=== PATIENT | female | born 1980 | race Caucasian/White ===

== ENCOUNTER 2022-02-11 01:48 | Outpatient (CLI) | payer OTHER, MEDICAID, SELFPAY ==
--- NOTE | 2022-02-14 15:59 | PDOC.EEG ---
Neurology EEG EEG: [facility] Department of Neurology LONG-TERM AMBULATORY EEG REPORT Date of Recordin02/11/22 at 08:28:34 to02/12/22 at 15:54:17 Interpreting Physician: Dr. Adalgisa Miller PCP/Referring Provider: Fanny Sr NP Reason for study: Ms. Ellis is a 41 year-old with a several year history of spells. Current Medications: Home Medications Medication Instructions Recorded Confirmed Type clonazepam 0.5 mg tablet 0.5 mg PO TID 11/02/21 02/01/22 History epinephrine 0.3 mg/0.3 mL 0.3 mg IM ONCE 11/02/21 02/01/22 History injection, auto-injector (EpiPen 2-Yamil) ibuprofen 600 mg tablet 600 mg PO Q6H PRN 11/02/21 02/01/22 History lurasidone 20 mg tablet (Latuda) 40 mg PO DAILY 02/01/22 02/01/22 History ondansetron HCl 8 mg tablet 8 mg PO Q8H 02/01/22 02/01/22 History topiramate 100 mg tablet 100 mg PO QHS #90 tabs 02/01/22 02/01/22 Rx topiramate 50 mg tablet See Rx Instructions PO QHS #21 tabs 02/01/22 02/01/22 Rx trazodone 50 mg tablet 100 mg PO QHS 02/01/22 02/01/22 History zolmitriptan 5 mg tablet See Rx Instructions PO .COMPLEX #9 02/01/22 02/01/22 Rx tabs METHODS: An 18-channel digitized electroencephalogram was recorded in the ambulatory setting with video. The 10/20 international system of electrode placement was used and bipolar and referential electrode montages were recorded. In addition to EEG the patient was monitored for EKG and by video. Activation procedures of photic stimulation and hyperventilation were performed if applicable. The duration of the recording was ~31 hours. DESCRIPTION OF EEG: Waking background activity: During maximal wakefulness a 9.5-Hz posterior background rhythm was present which was well-modulated, symmetrical, reactive to eye opening, and of moderate voltage. Faster frequencies were present in the bilateral anterior head regions. There was a normal anterior-posterior voltage gradient. Drowsy and sleeping background activity: During drowsiness, there was attenuation of the posterior dominant background rhythm and vertex waves. Normal stage II and III sleep was present with symmetrical sleep spindles, K-complexes, and vertex waves with slowing of the background rhythm to delta/theta frequencies. REM sleep manifested by rapid lateral eye movements and faster background rhythms was recorded. Arousal was unremarkable. Interictal abnormalities: none. Ictal findings: There were no reported events. Activating Procedures: Photic stimulation was performed which produced no posterior driving response. Hyperventilation was performed with moderate effort and produced mild physiological slowing of the background. EKG: EKG revealed normal sinus rhythm/SB. INTERPRETATION: This long-term EEG is normal during the awake and sleep states as well as during the activation procedures. PRIOR EEG: none CLINICAL CORRELATION: No focal regions of cerebral dysfunction or epileptiform activity was present. Epilepsy remains a clinical diagnosis and a normal EEG does not rule out epilepsy. Clinical correlation is advised. Adalgisa Miller MD
== END 2022-02-11 01:49 | disposition home or self-care (01) ==
LOC: RT 01:48
PROVIDERS: PCP Registered Nurse; Visit Provider Psychiatry & Neurology Neurology
DX: R68.89 Other general symptoms and signs (principal)
CPT/HCPCS: 95714

== ENCOUNTER 2023-09-11 12:39 | Outpatient (CLI) | payer SELFPAY ==
[2023-09-11 20:13] LABS: HCG Qual (Urine) Negative
== END 2023-09-11 12:40 | disposition home or self-care (01) ==
LOC: LBO 12:39
PROVIDERS: PCP Registered Nurse; Visit Provider Neuromusculoskeletal Medicine & OMM
DX: N92.5 Other specified irregular menstruation (principal); Z32.02 Encounter for pregnancy test, result negative
CPT/HCPCS: 81025

== ENCOUNTER → 2023-09-29 22:34 | Emergency (ER) | payer SELFPAY ==
[2023-09-29] VITALS (15 sets, daily range): BP systolic 106–137; BP diastolic 55–78; PULSE 75–94; RESP 17–23; TEMP 36.8; O2SAT 93–98
--- NOTE | 2023-09-29 22:30 | RT.EKG_ITS ---
APPROVED REPORT Exam: Resting ECG Reason for Exam: chest pain Patient Location: E HR:88 bpm ECG Measurements Heart Rate 88 AXIS AK 176 P 54 QRSd 115 QRS 0 QT 353 T 21 QTc 428 Conclusion Sinus rhythm...normal P axis, V-rate 60- 99 Probable left ventricular hypertrophy...multiple LVH criteria Physician: no stemi
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
[2023-09-29] MEDS: LORazepam 2 MG/ML VIAL 0.5 MG IVP (23:04)
[2023-09-29 23:07] LABS: Abs Immature Grans 0.03 10^3/uL (0.0-0.06); Absolute Basophil Count 0.05 10^3/uL (0.0-0.2); Absolute Eosinophil Count 0.06 10^3/uL (0.0-0.7); Absolute Lymphocyte Count 2.87 10^3/uL (1.2-3.4); Absolute Monocyte Count 0.65 10^3/uL (0.1-0.8); Absolute Neutrophil Count 5.58 10^3/uL (1.2-6.7); Basophils % 0.5 %; Eosinophils % 0.6 %; HCT 31.6 % (36.0-46.0); HGB 9.6 g/dL (11.2-15.7); Immature Grans % 0.3 %; Lymphocytes % 31.1 %; MCH 22.5 pg (27.0-33.0); MCHC 30.4 % (32.0-36.0); MCV 74 fL (80-95); MPV 10.1 fL (8.0-11.0); Neutrophils % 60.5 %; Platelet Count 390 10^3/uL (130-400); RBC 4.27 10^6/uL (3.93-5.22); RDW 16.5 % (11.7-14.6); WBC 9.24 10^3/uL (4.4-10.8)
[2023-09-29 23:20] LABS: ALT 22 U/L (14-59); AST 18 U/L (15-37); Albumin 3.4 g/dL (3.4-5.0); Alkaline Phosphatase 117 U/L (46-116); Anion Gap 9.2 mmol/L (3-11); BUN 11 mg/dL (7-18); Bilirubin, Total 0.61 mg/dL (0.2-1.0); CO2 26.8 mmol/L (21.0-32.0); Chloride 104 mmol/L (98-107); Estimated GFR 71.69 (mL/min/1.73m2); Glucose 108 mg/dL (74-106); Potassium 3.4 mmol/L (3.5-5.1); Sodium 140 mmol/L (136-145); Total Protein 7.9 g/dL (6.4-8.2); Troponin I < 50 ng/L (< or =60)
[2023-09-29 23:23] LABS: Diff Comment RBC Morph Reviewed; Microcytosis 1+
--- NOTE | 2023-09-29 23:42 | NUR.NOTE ---
Nursing Note: pt appears to be sleeping at this time
== END | disposition home or self-care (01) ==
LOC: ER 23:52 → RED 09-30 00:09
PROVIDERS: Emergency Provider Student in an Organized Health Care Education/Training Program; PCP Registered Nurse
DX: R07.9 Chest pain, unspecified (principal); F41.9 Anxiety disorder, unspecified; Z86.59 Personal history of other mental and behavioral disorders; Z63.5 Disruption of family by separation and divorce
CPT/HCPCS: 36415; 80053; 93005; 96374; 99284; 84484; 85025; 93010; 99283; J2060

== ENCOUNTER 2024-03-25 13:30 | Emergency (ER) | payer SELFPAY ==
[2024-03-25 13:38] VITALS: BP 148/98; PULSE 90; RESP 20; TEMP 36.5; O2SAT 99
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
[2024-03-25 14:08] VITALS: BP 116/61; PULSE 90; RESP 20; O2SAT 95
[2024-03-25] MEDS: Ibuprofen 400 MG TAB PO (14:16)
[2024-03-25 14:22] LABS: Bilirubin Negative (Negative); Blood Large (Negative); Clarity Clear (Clear); Glucose Negative (Negative); Ketones Negative (Negative); Leukocyte Esterase Negative (Negative); Nitrite Negative (Negative); Urobilinogen 0.2 mg/dL (Up to 0.2)
[2024-03-25 14:27] LABS: Bacteria Few HPF (Negative); C & S Indicated? No; Casts Negative LPF (Negative); Crystals Negative HPF (Negative); Epithelial Cells Few HPF (Negative); Mucus Moderate (Negative); WBC 0-2 HPF (0-5)
[2024-03-25 14:27] LABS: Abs Immature Grans 0.03 10^3/uL (0.0-0.06); Absolute Basophil Count 0.05 10^3/uL (0.0-0.2); Absolute Eosinophil Count 0.16 10^3/uL (0.0-0.7); Absolute Lymphocyte Count 3.05 10^3/uL (1.2-3.4); Absolute Monocyte Count 0.65 10^3/uL (0.1-0.8); Absolute Neutrophil Count 5.02 10^3/uL (1.2-6.7); Basophils % 0.6 %; Eosinophils % 1.8 %; HCT 34.1 % (36.0-46.0); HGB 10.5 g/dL (11.2-15.7); Immature Grans % 0.3 %; MCH 24.2 pg (27.0-33.0); MCHC 30.8 % (32.0-36.0); MCV 79 fL (80-95); MPV 9.6 fL (8.0-11.0); Monocytes % 7.3 %; Platelet Count 414 10^3/uL (130-400); RBC 4.34 10^6/uL (3.93-5.22); RDW 15.4 % (11.7-14.6); WBC 8.96 10^3/uL (4.4-10.8)
[2024-03-25 14:46] LABS: ALT 37 U/L (14-59); AST 22 U/L (15-37); Albumin 3.5 g/dL (3.4-5.0); Alkaline Phosphatase 145 U/L (46-116); Anion Gap 5.8 mmol/L (3-11); BUN 11 mg/dL (7-18); Bilirubin, Total 0.44 mg/dL (0.2-1.0); CO2 31.2 mmol/L (21.0-32.0); CREATININE 0.9 mg/dL (0.55-1.02); Calcium 9.1 mg/dL (8.5-10.1); Chloride 105 mmol/L (98-107); Estimated GFR 81.35 (mL/min/1.73m2); Glucose 77 mg/dL (74-106); Potassium 3.6 mmol/L (3.5-5.1); Sodium 142 mmol/L (136-145); Total Protein 8.5 g/dL (6.4-8.2)
[2024-03-25 15:19] VITALS: BP 133/84; PULSE 91; RESP 18; O2SAT 97
== END 2024-03-25 15:20 | disposition home or self-care (01) ==
LOC: ER 15:11
PROVIDERS: Physician Assistant; Emergency Provider Emergency Medicine
DX: N93.8 Other specified abnormal uterine and vaginal bleeding (principal); D50.9 Iron deficiency anemia, unspecified; F17.290 Nicotine dependence, other tobacco product, uncomplicated
CPT/HCPCS: 80053; 99283; 81003; 81015; 85025

== ENCOUNTER 2024-03-27 11:37 | Outpatient (REF) | payer SELFPAY ==
--- NOTE | 2024-03-27 11:00 | PAPFT_PTH ---
PATIENT: Zelda Ellis LOC: [facility] U#:[id number] AGE/SX: 43/F ROOM: RE03/27/[address]: Misa Vinson NP : 1980 BED: DIS: 03/27/2024 SPEC #: [id number] RECD: 03/27/24 12:52 STATUS: BYRON BURNS #: [id number] SORAYA: 03/27/24 11:[address]: Misa Vinson NP DEPT: [facility] Cytology RECD BY: Jennifer De La Garza ENTERED: 03/27/24 12:52 SP TYPE: PAPFT FARTUN DR: None Tissues: 1 - CX/ENDOCX FOR PAP SMEARS Procedures: PAP THIN PREP/UVM Screening Comments: [id number] (UNSATISFACTORY FOR EVALUATION)
--- NOTE | 2024-03-27 11:00 | ENDOMET_PTH ---
PATIENT: Zelda Ellis LOC: [facility] U#:[id number] AGE/SX: 43/F ROOM: RE03/27/[address]: Misa Vinson NP : 1980 BED: DIS: 03/27/2024 SPEC #: [id number] RECD: 03/27/24 12:48 STATUS: BYRON REClyde #: [id number] SORAYA: 03/27/24 11:[address]: Alisson CARRENO,Misa DEPT: Surgical Specimen RECD BY: Jennifer De La Garza ENTERED: 03/27/24 12:48 SP TYPE: Endomet OTHR DR: None Tissues: 1 - ENDOMETRIUM BX/CURRETTE Procedures: GROSS AND MICRO LEVEL 4 Comments: [id number]
== END 2024-03-27 11:38 | disposition home or self-care (01) ==
LOC: LBN 11:37
PROVIDERS: Visit Provider Nurse Practitioner Women's Health
DX: D26.0 Other benign neoplasm of cervix uteri (principal); N89.8 Other specified noninflammatory disorders of vagina; N93.8 Other specified abnormal uterine and vaginal bleeding
CPT/HCPCS: 88142; 88305

== ENCOUNTER 2024-04-04 15:42 | Outpatient (REF) | payer SELFPAY ==
--- NOTE | 2024-04-04 16:00 | ENDOMET_PTH ---
PATIENT: Zelda Ellis LOC: [facility] U#:[id number] AGE/SX: 43/F ROOM: RE04/04/[address]: Camille Sargent : 1980 BED: DIS: 04/04/2024 SPEC #: [id number] RECD: 04/04/24 17:38 STATUS: BYRON REQ #: [id number] SORAYA: 04/04/24 16:[address]: Camille Sargent DEPT: Surgical Specimen RECD BY: Jennifer De La Garza ENTERED: 04/04/24 17:39 SP TYPE: Endomet OTHR DR: None Tissues: 1 - ENDOMETRIUM BX/CURRETTE Procedures: GROSS AND MICRO LEVEL 4 Comments: [id number]
== END 2024-04-04 15:43 | disposition home or self-care (01) ==
LOC: LBN 15:42
PROVIDERS: Visit Provider Obstetrics & Gynecology Gynecology
DX: D26.0 Other benign neoplasm of cervix uteri
CPT/HCPCS: 88305; 87480; 87510; 87660

== ENCOUNTER 2024-04-13 16:10 | Emergency (ER) | payer SELFPAY ==
[2024-04-13 16:21] VITALS: BP 128/83; PULSE 97; RESP 16; TEMP 36.8; O2SAT 98
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
[2024-04-13 17:54] LABS: COVID-19 PCR Negative (Negative); Influenza A PCR Negative (Negative); Influenza B PCR Negative (Negative); RSV PCR Negative (Negative)
[2024-04-13 17:57] LABS: Source Nasopharynx
--- NOTE | 2024-04-13 18:18 | DI.RAD_ITS ---
Exam(s) XR CHEST 2V PA LATERAL EXAM: XR CHEST 2V PA LATERAL CLINICAL HISTORY: cough TECHNIQUE: 2D digital imaging was performed. Two views. COMPARISON: No exams were available for comparison FINDINGS: Suboptimal pulmonary inflation HEART: Mildly enlarged versus secondary to low lung volumes. Aorta: Not dilated. PULMONARY VASCULATURE: Normal. MEDIASTINUM: Unremarkable. LUNGS: Minimal scarring at the right lung base, otherwise clear. PLEURAL SPACE: No pleural effusion or pneumothorax. BONE:Unremarkable for age. SOFT TISSUES: Unremarkable. IMPRESSION: No acute abnormality. DATA REPOSITORY: RADIATION DOSE DELIVERED:
[2024-04-13 18:53] VITALS: BP 121/79; PULSE 83; RESP 13; TEMP 36.8; O2SAT 97
--- NOTE | 2024-04-13 19:01 | DI.VRAD_ITS ---
PROCEDURE INFORMATION: Exam: XR Chest Exam date and time: 04/13/2024 6:17 PM Age: 43 years old Clinical indication: Cough TECHNIQUE: Imaging protocol: Radiologic exam of the chest. Views: 2 views. COMPARISON: No relevant prior studies available. FINDINGS: Lungs: There is a minimal pulmonary parenchymal scarring at the right lung base. Lungs otherwise clear. There is no pulmonary vascular congestion. Pleural spaces: There are no pleural effusions present. There is no evidence of pneumothorax. Heart/Mediastinum: The heart appears mildly enlarged, but is not well evaluated due to low lung volumes. Bones/joints: Unremarkable. IMPRESSION: No active cardiopulmonary disease identified. Dictated and Authenticated by: Fausto Llamas MD. Orderin Manjinder Del Rio MD
[2024-04-13] MEDS: Albuterol HFA 8 GM 60 PUFF INH IH (19:19)
[2024-04-13] MEDS: Benzonatate 100 MG CAP 200 MG PO (19:20)
[2024-04-13] MEDS: Inhaler, Assist Device 1 EACH MC (19:20)
== END 2024-04-13 19:24 | disposition home or self-care (01) ==
PROVIDERS: Student in an Organized Health Care Education/Training Program; Emergency Provider Physician Assistant
DX: J06.9 Acute upper respiratory infection, unspecified (principal); E11.9 Type 2 diabetes mellitus without complications; F17.290 Nicotine dependence, other tobacco product, uncomplicated
CPT/HCPCS: 87637; 99284; 71046

== ENCOUNTER 2024-06-12 09:04 | Outpatient (CLI) | payer SELFPAY ==
[2024-06-12 13:27] LABS: HCT 34.7 % (36.0-46.0); HGB 10.4 g/dL (11.2-15.7); MCH 22.7 pg (27.0-33.0); MCV 76 fL (80-95); MPV 10.4 fL (8.0-11.0); Platelet Count 415 10^3/uL (130-400); RBC 4.59 10^6/uL (3.93-5.22); RDW 19.4 % (11.7-14.6); RDW-SD 51.6 fL; WBC 7.71 10^3/uL (4.4-10.8)
[2024-06-12 13:50] LABS: Hemoglobin A1C 5.8 % (<5.7)
== END 2024-06-12 09:05 | disposition home or self-care (01) ==
PROVIDERS: Visit Provider Obstetrics & Gynecology
DX: Z01.818 Encounter for other preprocedural examination (principal)
CPT/HCPCS: 36415; 85027; 86850; 86900; 86901; 83036

== ENCOUNTER 2024-11-22 10:32 | Outpatient (REF) | payer SELFPAY | END 2024-11-22 10:33 | disposition home or self-care (01) | LOC: LBN 10:32 | PROVIDERS: Visit Provider Obstetrics & Gynecology | DX: D26.0 Other benign neoplasm of cervix uteri (principal) | CPT/HCPCS: 88305 ==